=== PATIENT | female | born 1980 | race Caucasian/White ===

== ENCOUNTER 2017-02-01 19:20 | Emergency (ER) | payer OTHER ==
[~2017-02-01] VITALS: Ht 167.6 cm; Wt 61.2 kg
[2017-02-01 19:20] VITALS: BP_SYST 136
--- NOTE | 2017-02-01 19:20 | NUR ---
Patient to [facility] for evaluation. Side rails up. Report given to LESTER KHAN.
--- NOTE | 2017-02-01 19:21 | NUR ---
[facility] in [facility] examining patient.
--- NOTE | 2017-02-01 19:22 | NUR ---
Pt brought in by in stable condition. Per , pt needs to be medically cleared prior to being booked. Pt admitted to heroin use. Pt present in an anxious state. Pt denies any medical hx at this time. No acute distress noted at this time, will continue to monitor
[2017-02-01 19:35] VITALS: BP_SYST 136
--- NOTE | 2017-02-01 19:35 | NUR ---
Patient given written and verbal discharge instructions and verbalizes understanding. ER MD Turner discussed with patient the results and treatment provided. Patient in stable condition. ID arm band removed. NO Rx given. Patient educated on pain management and to follow up with PMD. Pain Scale 0/10. Opportunity for questions provided and answered.
== END 2017-02-01 19:35 ==
LOC: SED 19:20
DX: Z02.89 Encounter for other administrative examinations (principal); F41.9 Anxiety disorder, unspecified
CPT/HCPCS: 99283